=== PATIENT | male | born 1965 | race Caucasian/White ===

== ENCOUNTER 2024-04-05 07:28 | Outpatient (OUT) | payer OTHER, SELFPAY ==
--- NOTE | 2024-04-05 07:41 | MR_ITS ---
The [address] [address] Patient Name: ELIZABETH ARMENTA MRN: [id number] date: 1965 Sex: M Assigned Patient Location: MRI Current Patient Location: Accession/Order Number: [id number] Exam Date: 04/05/2024 07:55 Report Date: 04/07/2024 06:39 At the request of: CUONG HECK Procedure: MR knee LT wo con EXAMINATION: MR knee LT wo con HISTORY: Left Knee Pain And Instability COMPARISON: No relevant comparison available. TECHNIQUE: A complete multi-planar MRI was performed. FINDINGS: MEDIAL COMPARTMENT MEDIAL MENISCUS: No visible tear or significant degeneration. CARTILAGE: No visible defect. BONES: No marrow pathology, fracture, or significant arthropathy. MCL AND MEDIAL CAPSULE: Normal medial collateral ligament and medial capsule. LATERAL COMPARTMENT LATERAL MENISCUS: No visible tear or significant degeneration. CARTILAGE: No visible defect. BONES: No marrow pathology, fracture, or significant arthropathy. LCL/POSTEROLAT COMPLEX: Normal lateral collateral ligament, fascicles, lateral capsule and ligaments. ANTERIOR COMPARTMENT PATELLA: Several small foci of subchondral edema involving the lateral facet. CARTILAGE: Marked cartilage thinning with suspected focal defects within the lateral facet. Significant thinning is also seen over the medial facet. TENDONS: Normal. EFFUSION: Small joint effusion. ACL: Normal appearing ligament. PCL: Normal appearing ligament. MENISCOFEMORAL: Normal meniscofemoral ligaments. OTHER: Small Padilla's cyst. MR/MR knee LT wo con IMPRESSION: 1. 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 2. Small joint effusion. 3. Small Padilla's cyst. Electronically authenticated by: DORA CROWE Date: 04/07/2024 06:39
== END 2024-04-05 07:29 | disposition home or self-care (01) ==
LOC: MRI 07:35
PROVIDERS: PCP Family Medicine; Visit Provider Family Medicine
DX: M25.562 Pain in left knee (principal); M22.42 Chondromalacia patellae, left knee; M25.462 Effusion, left knee; M71.22 Synovial cyst of popliteal space [Baker], left knee
CPT/HCPCS: 73721